=== PATIENT | female | born 1935 | race Two or more races ===

== ENCOUNTER 2021-06-23 09:30 | Inpatient (IN) | payer OTHER ==
[~2021-06-23] VITALS: Ht 157.5 cm; Wt 65.3 kg
[2021-06-23] MEDS ORDERED: LIPITOR20 MG PO (11:30)
[2021-06-23] MEDS ORDERED: NORVASC2.5 MG PO (11:30)
[2021-06-23] MEDS ORDERED: TOPROL XL50 M1 PO (11:31)
[2021-06-23] MEDS ORDERED: COZAAR50 MG PO (11:31)
[2021-06-23] MEDS ORDERED: GLIMEPIRIDE1 M1 PO (11:31)
[2021-06-23] MEDS ORDERED: EVISTA60 MG PO (11:32)
[2021-06-23] MEDS ORDERED: JANUMET XR 50-1 EAC1 PO (11:32)
[2021-06-27] MEDS ORDERED: D3-501250 MCG (08:15)
[2021-06-27] MEDS ORDERED: LEVOTHYROXINE50 MCG (08:15)
[2021-06-27] MEDS ORDERED: BUMETANIDE1 MG (08:15)
[2021-06-27] MEDS ORDERED: METOPROLOL TART50 MG (08:16)
[2021-06-27] MEDS ORDERED: FERROUS SULFAT325 MG (08:16)
[2021-06-30] MEDS ORDERED: PROTONIX40 MG PO (10:55)
[2021-06-30] MEDS ORDERED: ULTRACET PO (10:55)
[2021-06-30] MEDS ORDERED: INTESTINEX680 M1 PO (10:55)
== END 2021-06-30 11:41 | disposition home or self-care (01) | DRG 330 ==
LOC: EDSTATUS 09:30 → ADM 09:30 → O/R 06-26 05:47 → SURH 06-26 09:30
PROVIDERS: ADMIT Surgery; ATTEND Surgery
PROC: 0DTN0ZZ Resection of Sigmoid Colon, Open Approach (ICD-10-PCS; 2021-06-26)
PROC: 07BC0ZX Excision of Pelvis Lymphatic, Open Approach, Diagnostic (ICD-10-PCS; 2021-06-26)
PROC: 3E0F7SF Introduction of Other Gas into Respiratory Tract, Via Natural or Artificial Opening (ICD-10-PCS; 2021-06-26)
PROC: 0DTP0ZZ Resection of Rectum, Open Approach (ICD-10-PCS; principal; 2021-06-26 11:00)
DX: C18.7 Malignant neoplasm of sigmoid colon (principal); K92.1 Melena; D50.0 Iron deficiency anemia secondary to blood loss (chronic); R19.4 Change in bowel habit; R59.0 Localized enlarged lymph nodes; Z20.822 Contact with and (suspected) exposure to COVID-19